=== PATIENT | female | born 1965 | race Caucasian/White ===

== ENCOUNTER 2016-11-06 06:35 | Emergency (ER) | payer BC ==
[~2016-11-06] VITALS: Ht 154.9 cm; Wt 87.9 kg
[2016-11-06] MEDS ORDERED: ONDANSETRON 2MG/ML, 2ML IVPush ONE (07:00)
[2016-11-06] MEDS ORDERED: SODIUM CHLORIDE 0.9% 1,000ML IVBOLUS ONE (07:00)
[2016-11-06] MEDS ORDERED: FAMOTIDINE 20 MG/2 ML IVP ONE (07:00)
[2016-11-06] MEDS ORDERED: MORPHINE SULFATE 4 MG/ML, 1ML IVPush PRN (07:00)
[2016-11-06] MEDS ORDERED: SODIUM CHLORIDE FLUSH 10ML SYR IVF ONE (07:00)
[2016-11-06 07:24] LABS: HEMATOCRIT 40.1 % (34.6-47.8); HEMOGLOBIN 13.5 g/dL (11.7-16.4); WHITE BLOOD COUNT 10.4 x10^3/uL (3.4-10)
[2016-11-06] MEDS ORDERED: MORPHINE SULFATE 4 MG/ML, 1ML ONE (07:34)
[2016-11-06] MEDS ORDERED: ONDANSETRON 2MG/ML, 2ML ONE (07:34)
[2016-11-06] MEDS ORDERED: FAMOTIDINE 20 MG/2 ML ONE (07:34)
[2016-11-06 07:36] LABS: ASPARTATE AMINO TRANSFERASE 11 U/L (15-37); BLOOD UREA NITROGEN 13 mg/dL (7-18)
[2016-11-06 08:02] LABS: HCG UR OBC PASS
[2016-11-06 08:03] LABS: PATH.CAST-FLAG NOT PRESENT; SPERM-FLAG NOT PRESENT; SRC-FLAG NOT PRESENT; XTAL-FLAG NOT PRESENT; YLC-FLAG NOT PRESENT
[2016-11-06] MEDS ORDERED: PROMETHAZINE 25 MG/ML, 1ML IM ONE (08:30)
[2016-11-06] MEDS ORDERED: MAALOX/HYOSCYAMINE/LIDOCAINE 45 ML BTL PO ONE (08:30)
[2016-11-06] MEDS ORDERED: PROMETHAZINE 25 MG/ML, 1ML ONE (09:00)
[2016-11-06] MEDS ORDERED: MAALOX/HYOSCYAMINE/LIDOCAINE 45 ML BTL ONE (09:00)
[2016-11-06 09:46] VITALS: BP 131/78
== END 2016-11-06 09:55 | disposition home or self-care (01) ==
LOC: ED 08:52
DX: K29.00 Acute gastritis without bleeding (principal)
CPT/HCPCS: 36415; 71010; 76700; 80053; 81001; 81025; 83690; 85025; 87086; 93005; 96361; 96372; 96374; 96375; 99285; J2405; J2550; J7030; S0028

== ENCOUNTER → 2017-08-08 | Outpatient (CLI) | payer BC ==
[~2017-08-08] MED LIST: [UNRECOGNIZED DRUG - REMARK]
[2017-08-08 12:12] LABS: BASOPHILS # (AUTO) 0.03 x10^3/uL (0-0.1); BASOPHILS % (AUTO) 0 % (0-1); EOSINOPHILS # (AUTO) 0.08 x10^3/uL (0-0.4); EOSINOPHILS % (AUTO) 1 % (1-7); LYMPHOCYTES # (AUTO) 2.61 x10^3/uL (1-3.4); LYMPHOCYTES % (AUTO) 35 % (22-44); MD NO; MEAN CORPUSCULAR HEMOGLOBIN 32.2 pg (27.0-34.8); MEAN CORPUSCULAR HGB CONC 33.5 g/dL (32.4-35.8); MEAN CORPUSCULAR VOLUME 96.1 fL (80-100); MONOCYTES # (AUTO) 0.46 x10^3/uL (0.2-0.8); MONOCYTES % (AUTO) 6 % (2-9); NEUTROPHILS # (AUTO) 4.31 x10^3/uL (1.8-6.8); NEUTROPHILS % (AUTO) 58 % (42-75); PLATELET COUNT 252 x10^3/uL (130-400); RED BLOOD COUNT 4.21 x10^6/uL (3.82-5.3); RED CELL DISTRIBUTION WIDTH 14.8 % (9.6-15.2)
[2017-08-08 12:19] LABS: INTERNATIONAL NORMALIZED RATIO 0.94 (0.93-1.1); PROTHROMBIN TIME 9.7 Seconds (9.6-11.5)
[2017-08-08 12:21] LABS: MICROSCOPIC NOT IND
[2017-08-08 12:25] LABS: CHLORIDE 111 mmol/L (98-107)
[2017-08-08 12:30] LABS: CULTURE INDICATED? NO
[2017-08-08 12:30] LABS: CALCIUM 8.9 mg/dL (8.5-10.1); CREATININE 0.89 mg/dL (0.55-1.02)
[2017-08-08 13:11] LABS: ANION GAP 9 mmol/L (5-15)
== END | disposition home or self-care (01) ==
LOC: STAR 11:00
PROVIDERS: ATTEND Neurological Surgery
DX: Z01.818 Encounter for other preprocedural examination (principal); M71.38 Other bursal cyst, other site
CPT/HCPCS: 36415; 71046; 80048; 81003; 85025; 85610; 85730; 93005

== ENCOUNTER 2017-08-23 09:30 | Observation (INO) | payer BC ==
[~2017-08-23] VITALS: Ht 154.9 cm; Wt 96.0 kg
[2017-08-23] MEDS ORDERED: LACTATED RINGERS 1,000 ML IV SCH (12:55)
[2017-08-23] MEDS ORDERED: ONDANSETRON ODT 8 MG PO ONE (13:00)
[2017-08-23] MEDS ORDERED: GABAPENTIN 300 MG CAPSULE PO ONE (13:00)
[2017-08-23] MEDS ORDERED: ACETAMINOPHEN 500 MG TABLET PO ONE (13:00)
[2017-08-23] MEDS ORDERED: OXYcodone IR 5MG TABLET PO ONE (13:00)
[2017-08-23 13:27] VITALS: BP 130/90
[2017-08-23] MEDS ORDERED: GABA-827 PO (13:27)
[2017-08-23] MEDS ORDERED: QUET50TA PO (13:27)
[2017-08-23] MEDS ORDERED: FLUV50TA2 PO (13:27)
[2017-08-23] MEDS ORDERED: ALBUTEROL SULFATE 2.5 MG/3 ML NPPB PRN (15:00)
[2017-08-23] MEDS ORDERED: METOPROLOL 1 MG/ML, 5ML IV PRN (15:00)
[2017-08-23] MEDS ORDERED: EPHEDRINE 50 MG/ML, 1ML IVPush PRN (15:00)
[2017-08-23] MEDS ORDERED: OXYcodone 5 MG/5 ML ORAL.SOL UDC PO PRN (15:00)
[2017-08-23] MEDS ORDERED: PROMETHAZINE 25 MG/ML, 1ML IV PRN (15:00)
[2017-08-23] MEDS ORDERED: LABETALOL 5MG/ML, 20ML IV PRN (15:00)
[2017-08-23] MEDS ORDERED: hydrALAzine 20 MG/ML, 1ML IV PRN (15:00)
[2017-08-23] MEDS ORDERED: MORPHINE SULFATE 4 MG/ML, 1ML IVPush PRN (15:00)
[2017-08-23] MEDS ORDERED: HALOPERIDOL 5 MG/ML IV PRN (15:00)
[2017-08-23] MEDS ORDERED: ONDANSETRON ODT 8 MG PO PRN (15:00)
[2017-08-23] MEDS ORDERED: NEOSTIGMINE 1 MG/ML, 10ML ONE (16:20)
[2017-08-23] MEDS ORDERED: ROCURONIUM 10 MG/ML,10ML ONE (16:20)
[2017-08-23] MEDS ORDERED: ONDANSETRON 2MG/ML, 2ML ONE (16:20)
[2017-08-23] MEDS ORDERED: GLYCOPYRROLATE 0.2MG/1ML, 5ML ONE (16:20)
[2017-08-23] MEDS ORDERED: DEXAMETHASONE 4 MG/ML, 1ML ONE (16:20)
[2017-08-23] MEDS ORDERED: PROPOFOL 10 MG/ML, 20ML ONE (16:20)
[2017-08-23] MEDS ORDERED: CEFAZOLIN 1,000 MG ONE (16:20)
[2017-08-23] MEDS ORDERED: BUPIVACAINE/PF 0.25% INFIL ONE (16:59)
[2017-08-23] MEDS ORDERED: BACITRACIN 50,000 UNIT IRRIG ONE (17:02)
[2017-08-23] MEDS ORDERED: THROMBIN 5,000 UNIT VIAL TP ONE (17:02)
[2017-08-23] MEDS ORDERED: SUGAMMADEX 200 MG/2 ML IVPush ONE (17:18)
[2017-08-23] MEDS ORDERED: PHARMACY MAY ADJ FOR RENAL FX MC PRN (17:30)
[2017-08-23] MEDS ORDERED: BISACODYL 10 MG SUPP PR PRN (17:30)
[2017-08-23] MEDS: FENTANYL PF 100 MCG/2ML IV PRN ×2 (17:30→18:07)
[2017-08-23] MEDS ORDERED: DIPHENHYDRAMINE 50 MG/ML, 1ML IVPush PRN (17:30)
[2017-08-23] MEDS ORDERED: MAGNESIUM HYDROXIDE 8%, 30ML UDC PO PRN (17:30)
[2017-08-23] MEDS ORDERED: ONDANSETRON 2MG/ML, 2ML IVPush PRN (17:30)
[2017-08-23] MEDS ORDERED: FENTANYL PF 100 MCG/2ML ONE (17:30)
[2017-08-23] MEDS ORDERED: PROMETHAZINE 25 MG/ML, 1ML IM PRN (17:30)
[2017-08-23] MEDS ORDERED: HYDROmorphone 1 MG/ML, 1ML IVPush PRN (17:30)
[2017-08-23] MEDS ORDERED: DIAZEPAM 5 MG TABLET PO PRN (17:30)
[2017-08-23] MEDS: HYDROmorphone 1 MG/ML, 1ML IV PRN ×2 (17:31→17:37)
[2017-08-23] MEDS ORDERED: HYDROmorphone 2 MG/ML, 1ML ONE (17:31)
[2017-08-23] MEDS ORDERED: OXYcodone 5 MG/5 ML ORAL.SOL UDC ONE (17:31)
[2017-08-23] MEDS ORDERED: DIAZEPAM 5 MG TABLET ONE (18:26)
[2017-08-23 19:00] VITALS: BP 143/101
[2017-08-23] MEDS: NS + 20MEQ KCL 1,000 ML IV SCH (19:26)
[2017-08-23] MEDS: SODIUM CHLORIDE FLUSH 10ML SYR IVF SCH (19:47)
[2017-08-23] MEDS: GABAPENTIN 400 MG CAPSULE PO SCH (20:43)
[2017-08-23] MEDS: METHOCARBAMOL 750 MG TABLET PO PRN (20:44)
[2017-08-23] MEDS ORDERED: FLUVOXAMINE 50MG TABLET PO SCH (21:00)
[2017-08-23] MEDS: OXYcodone/APAP 5/325MG TABLET PO PRN (22:26)
[2017-08-24] MEDS: CEFAZOLIN PMX 1GM/50ML 50 ML IVPB SCH ×2 (00:19→08:07)
[2017-08-24 04:31] VITALS: BP 95/55
[2017-08-24] MEDS: NS + 20MEQ KCL 1,000 ML IV SCH ×2 (05:15→15:15)
[2017-08-24] MEDS: METHOCARBAMOL 750 MG TABLET PO PRN ×2 (05:47→16:15)
[2017-08-24] MEDS: OXYcodone/APAP 5/325MG TABLET PO PRN ×3 (06:46→14:41)
[2017-08-24 06:50] VITALS: BP 108/65
[2017-08-24] MEDS: GABAPENTIN 400 MG CAPSULE PO SCH (08:08)
[2017-08-24] MEDS: SODIUM CHLORIDE FLUSH 10ML SYR IVF SCH (08:08)
[2017-08-24] MEDS ORDERED: SENNA/DOCUSATE TABLET PO SCH (09:00)
[2017-08-24] MEDS ORDERED: OXYC1TAB7 PO (09:19)
[2017-08-24] MEDS ORDERED: METH750T2 PO (09:19)
[2017-08-24 12:35] VITALS: BP 109/66
[2017-08-24] MEDS ORDERED: PNEUMOCOCCAL 23 VACCINE IM-VACC ONE (15:30)
== END 2017-08-24 17:25 | disposition home or self-care (01) ==
LOC: ORIP 12:19 → INTOOBSV 12:19 → 4NOR 18:58
PROVIDERS: ADMIT Neurological Surgery; ATTEND Neurological Surgery
DX: M54.16 Radiculopathy, lumbar region (principal); M71.38 Other bursal cyst, other site; M51.36 Other intervertebral disc degeneration, lumbar region; F31.9 Bipolar disorder, unspecified; Z87.891 Personal history of nicotine dependence; Z23 Encounter for immunization
CPT/HCPCS: 63030; 72100; 88304; 90471; 90732; 96365; 96375; 97162; 97166; G0378; J0171; J0690; J1100; J1170; J2250; J2405; J2704; J2710; J3010; J3370; J3480; J3490; J7120; Q0162

== ENCOUNTER 2018-08-12 02:46 | Inpatient (IN) | payer BC ==
[~2018-08-12] VITALS: Ht 154.9 cm; Wt 85.0 kg
[~2018-08-12 02:46] MED LIST changes: +FLUV50TA2 PO; +GABA-827 PO; +METH750T2 PO; +OXYC1TAB7 PO; +QUET50TA PO
[2018-08-12] MEDS ORDERED: MUCINEX (02:57)
[2018-08-12] MEDS ORDERED: IBUPROFEN (02:57)
[2018-08-12] MEDS ORDERED: TRAZ-137 PO (02:57)
[2018-08-12] MEDS ORDERED: BENADRYL (02:57)
--- NOTE | 2018-08-12 03:06 | NUR ---
PT PRESENTED WITH C/O CHEST PAIN, NAUSEA, PAIN IS DESCRIBED PRESSURE AND HAS BEEN HAVING N/V, PAIN HAS BEEN CONSTANT. THAT ONSET MONDAY NIGHT THAT STOPPED. PAIN IS WORSE WITH DEEP BREATH, TONIGH/THIS AM SHE AWOKE IN COLD SWEAT. MONITORS APPLIED, SIDERAILS UP X2, CALL LIGHT WITHIN REACH
[2018-08-12] MEDS ORDERED: MAALOX/HYOSCYAMINE/LIDOCAINE 45 ML BTL ONE (03:23)
[2018-08-12] MEDS ORDERED: FAMOTIDINE 20 MG/2 ML ONE (03:23)
[2018-08-12] MEDS ORDERED: MORPHINE SULFATE 4 MG/ML, 1ML ONE ×2 (03:24→06:26)
[2018-08-12] MEDS ORDERED: ONDANSETRON 2MG/ML, 2ML ONE (03:24)
[2018-08-12] MEDS ORDERED: SODIUM CHLORIDE FLUSH 10ML SYR IVF ONE (03:30)
[2018-08-12] MEDS ORDERED: SODIUM CHLORIDE 0.9% 1,000ML IVBOLUS ONE (03:30)
[2018-08-12] MEDS ORDERED: ONDANSETRON 2MG/ML, 2ML IVPush ONE (03:30)
[2018-08-12] MEDS ORDERED: MAALOX/HYOSCYAMINE/LIDOCAINE 45 ML BTL PO ONE ×2 (03:30→12:30)
[2018-08-12] MEDS ORDERED: FAMOTIDINE 20 MG/2 ML IVP ONE (03:30)
[2018-08-12] MEDS: MORPHINE SULFATE 4 MG/ML, 1ML IVPush PRN ×2 (03:32→06:27)
--- NOTE | 2018-08-12 03:35 | NUR ---
IV SITE STARTED, PT MEDICATED PER MAR
[2018-08-12 03:41] LABS: BASOPHILS # (AUTO) 0.07 x10^3/uL (0-0.1); BASOPHILS % (AUTO) 1 % (0-1); EOSINOPHILS # (AUTO) 0.09 x10^3/uL (0-0.4); EOSINOPHILS % (AUTO) 1 % (1-7); LYMPHOCYTES % (AUTO) 41 % (22-44); MD NO; MEAN CORPUSCULAR HEMOGLOBIN 32.6 pg (27.0-34.8); MEAN CORPUSCULAR HGB CONC 33.2 g/dL (32.4-35.8); MEAN PLATELET VOLUME 7.6 fL (7.4-10.4); MONOCYTES # (AUTO) 0.68 x10^3/uL (0.2-0.8); MONOCYTES % (AUTO) 7 % (2-9); NEUTROPHILS # (AUTO) 4.74 x10^3/uL (1.8-6.8); NEUTROPHILS % (AUTO) 51 % (42-75); PLATELET COUNT 246 x10^3/uL (130-400); RED BLOOD COUNT 4.64 x10^6/uL (3.82-5.3); RED CELL DISTRIBUTION WIDTH 13.9 % (9.6-15.2)
[2018-08-12 03:49] LABS: ANION GAP 7 mmol/L (5-15); CALCIUM 9.5 mg/dL (8.5-10.1); CHLORIDE 108 mmol/L (98-107)
[2018-08-12 03:50] LABS: ALANINE AMINOTRANSFERASE 54 U/L (12-78); ALBUMIN 3.9 g/dL (3.4-5.0)
[2018-08-12 03:54] LABS: ALKALINE PHOSPHATASE 98 U/L (45-117); BILIRUBIN,TOTAL 0.3 mg/dL (0.2-1.0); TROPONIN I < 0.015 ng/mL (0.000-0.045)
--- NOTE | 2018-08-12 04:47 | NUR ---
PT RESTING ON GURREYNOLD, STATED " I FEEL ALOT BETTER", DENIES NEEDS AT THIS TIME, MONITORS IN PLACE, CALL LIGHT WITHIN REACH. CHART UP FOR RECHECK
--- NOTE | 2018-08-12 05:10 | NUR ---
ERP AT BEDSIDE FOR RECHECK
--- NOTE | 2018-08-12 05:32 | NUR ---
PT RESTING ON GURNEY, DENIES NEEDS, MONITORS IN PLACE, CALL LIGHT WITHIN REACH. AWAITING CTA
--- NOTE | 2018-08-12 05:40 | NUR ---
PT TO CT
[2018-08-12] MEDS ORDERED: OMNIPAQUE 350 MG/ML, 100ML BOTTLE ONE (06:10)
--- NOTE | 2018-08-12 06:28 | NUR ---
[place] ST[place] CP HAS RETURNED AND REQUESTING MEDICATION FOR PAIN, PT MEDICATED PER APR. MONITORS IN PLACE, CALL LIGHT WITHIN REACH. AWAITING CTA RESULT
--- NOTE | 2018-08-12 06:56 | NUR ---
report given to karri ozuna
--- NOTE | 2018-08-12 07:27 | NUR ---
PT RESTING ON GURREYNOLD, STATES PAIN IMPROVED POST MS04. NO OTHER NEEDS AT THIS TIME, AWAITING ADMISSION
[2018-08-12] MEDS ORDERED: ONDANSETRON 2MG/ML, 2ML IVPush PRN ×2 (07:30→09:00)
[2018-08-12] MEDS ORDERED: MORPHINE SULFATE 4 MG/ML, 1ML IVPush PRN (07:30)
--- NOTE | 2018-08-12 07:58 | NUR ---
REPORT TO OLIVER SCHMITT.
[2018-08-12] MEDS ORDERED: OXYcodone IR 5MG TABLET PO PRN (09:00)
[2018-08-12] MEDS ORDERED: morphine SULFATE 10 MG/ML, 1ML IVPush PRN (09:00)
[2018-08-12] MEDS ORDERED: PROMETHAZINE 25 MG/ML, 1ML IM PRN (09:00)
[2018-08-12] MEDS ORDERED: hydrALAzine 20 MG/ML, 1ML IVPush PRN (09:00)
[2018-08-12] MEDS ORDERED: ACETAMINOPHEN 325 MG TABLET PO PRN (09:00)
[2018-08-12] MEDS ORDERED: NITROGLYCERIN 0.4 MG BOTTLE (25 TABS) SL PRN (09:00)
[2018-08-12] MEDS ORDERED: ONDANSETRON ODT 4 MG PO PRN (09:00)
[2018-08-12 09:20] LABS: FREE T4 (FREE THYROXINE) 0.95 ng/dL (0.76-1.46); THYROID STIMULATING HORMONE 3.22 mIU/L (0.358-3.740)
[2018-08-12 09:53] VITALS: BP 126/87
[2018-08-12 10:08] LABS: HEMOGLOBIN A1C 5.9 % (4.2-6.3)
[2018-08-12] MEDS: SODIUM CHLORIDE 0.9% 1,000 ML IV SCH ×2 (10:33→20:46)
[2018-08-12] MEDS: PANTOPRAZOLE 40 MG IV IVPush SCH ×2 (10:33→20:45)
[2018-08-12 11:50] LABS: TROPONIN I < 0.015 ng/mL (0.000-0.045)
[2018-08-12 13:03] VITALS: BP 110/75
[2018-08-12 14:19] LABS: TROPONIN I < 0.015 ng/mL (0.000-0.045)
[2018-08-12 14:24] VITALS: BP 127/84
[2018-08-12 17:49] VITALS: BP 126/87
[2018-08-12 18:29] VITALS: BP 128/84
[2018-08-12] MEDS ORDERED: TRAZODONE 100MG TABLET PO SCH (21:00)
[2018-08-12] MEDS ORDERED: QUETIAPINE 25MG TABLET PO SCH (21:00)
[2018-08-12] MEDS ORDERED: FLUVOXAMINE 50MG TABLET PO SCH (21:00)
[2018-08-13 01:13] VITALS: BP 112/75
[2018-08-13] MEDS: SODIUM CHLORIDE 0.9% 1,000 ML IV SCH (05:04)
[2018-08-13 05:19] LABS: BASOPHILS # (AUTO) 0.01 x10^3/uL (0-0.1); BASOPHILS % (AUTO) 0 % (0-1); EOSINOPHILS # (AUTO) 0.05 x10^3/uL (0-0.4); EOSINOPHILS % (AUTO) 1 % (1-7); LYMPHOCYTES # (AUTO) 2.38 x10^3/uL (1-3.4); LYMPHOCYTES % (AUTO) 40 % (22-44); MD NO; MEAN CORPUSCULAR HEMOGLOBIN 32.8 pg (27.0-34.8); MEAN CORPUSCULAR HGB CONC 33.3 g/dL (32.4-35.8); MEAN CORPUSCULAR VOLUME 98.4 fL (80-100); MEAN PLATELET VOLUME 7.8 fL (7.4-10.4); MONOCYTES # (AUTO) 0.52 x10^3/uL (0.2-0.8); MONOCYTES % (AUTO) 9 % (2-9); NEUTROPHILS # (AUTO) 2.93 x10^3/uL (1.8-6.8); NEUTROPHILS % (AUTO) 50 % (42-75); PLATELET COUNT 192 x10^3/uL (130-400); RED BLOOD COUNT 3.76 x10^6/uL (3.82-5.3); RED CELL DISTRIBUTION WIDTH 14.4 % (9.6-15.2)
[2018-08-13 05:26] LABS: ALBUMIN 2.9 g/dL (3.4-5.0); ANION GAP 5 mmol/L (5-15); CALCIUM 8.2 mg/dL (8.5-10.1); CHLORIDE 116 mmol/L (98-107)
[2018-08-13 05:32] LABS: ALANINE AMINOTRANSFERASE 37 U/L (12-78); ALKALINE PHOSPHATASE 73 U/L (45-117); BILIRUBIN,TOTAL 0.2 mg/dL (0.2-1.0); CHOL/HDL RATIO 3.2; CHOLESTEROL, TOTAL 165 mg/dL (140-239); CREATININE 0.79 mg/dL (0.55-1.02); HDL CHOL % 31 % (28-40); HDL CHOLESTEROL (DIRECT) 51 mg/dL (40-60); LDL CHOLESTEROL,CALCULATED 83 mg/dL (54-169); LDL/HDL RATIO 1.6 (0.5-3.0); TOTAL PROTEIN 5.9 g/dL (6.4-8.2); TRIGLYCERIDES 155 mg/dL (50-200); VLDL CHOLESTEROL 31 mg/dL (0-25)
[2018-08-13 06:52] VITALS: BP 97/66
[2018-08-13] MEDS: PANTOPRAZOLE 40 MG IV IVPush SCH (08:20)
[2018-08-13] MEDS ORDERED: OMEP-110 PO (11:40)
== END 2018-08-13 14:30 | disposition home or self-care (01) | DRG 392 ==
LOC: ED 03:19 → EDIP 07:13 → 5SO 08:22 → DCLOUNGE 08-13 14:25
PROVIDERS: ADMIT Hospitalist; ATTEND Hospitalist
DX: K29.70 Gastritis, unspecified, without bleeding (principal); I20.0 Unstable angina; F31.9 Bipolar disorder, unspecified; F41.9 Anxiety disorder, unspecified; R07.89 Other chest pain; K21.0 Gastro-esophageal reflux disease with esophagitis; Z87.891 Personal history of nicotine dependence; Z88.8 Allergy status to other drugs, medicaments and biological substances
CPT/HCPCS: 36415; J3490; 71045; 71275; 80053; 80061; 83036; 83690; 83735; 84439; 84443; 84484; 85025; 93005; 93017; 93306; G0378; J2405; Q9967; C9113; J2270; J7030

== ENCOUNTER 2019-09-04 06:36 | Inpatient (IN) | payer BC ==
[~2019-09-04] VITALS: Ht 154.9 cm; Wt 86.0 kg
[~2019-09-04 06:36] MED LIST changes: +BENADRYL; +IBUPROFEN; +MUCINEX; +OMEP-110 PO; +TRAZ-175 PO
--- NOTE | 2019-09-04 06:52 | NUR ---
Pt presents with c/o N/V/D. Pt states diarrhea has been "going on for a while" and she can "control it during the day but has to wear diapers at night." Pt states last night vomiting and abdominal pain became worse leading her to call 911. When EMS arrived at her home, she states the symptoms calmed down and they adminsitered antiemetics and she decided not to go to the hospital. She states symptoms became worse again so she decided to come in
[2019-09-04] MEDS ORDERED: SODIUM CHLORIDE FLUSH 10ML SYR IVF ONE (07:00)
[2019-09-04] MEDS ORDERED: SODIUM CHLORIDE 0.9% 1,000ML IVBOLUS ONE (07:00)
[2019-09-04 07:20] LABS: BASOPHILS # (AUTO) 0.01 x10^3/uL (0-0.1); BASOPHILS % (AUTO) 0 % (0-1); EOSINOPHILS # (AUTO) 0.01 x10^3/uL (0-0.4); EOSINOPHILS % (AUTO) 0 % (1-7); LYMPHOCYTES # (AUTO) 1.64 x10^3/uL (1-3.4); LYMPHOCYTES % (AUTO) 14 % (22-44); MD NO; MEAN CORPUSCULAR HEMOGLOBIN 33.3 pg (27.0-34.8); MEAN CORPUSCULAR HGB CONC 32.4 g/dL (32.4-35.8); MEAN CORPUSCULAR VOLUME 102.7 fL (80-100); MONOCYTES # (AUTO) 0.22 x10^3/uL (0.2-0.8); MONOCYTES % (AUTO) 2 % (2-9); NEUTROPHILS # (AUTO) 9.71 x10^3/uL (1.8-6.8); NEUTROPHILS % (AUTO) 84 % (42-75); PLATELET COUNT 265 x10^3/uL (130-400); RED BLOOD COUNT 4.34 x10^6/uL (3.82-5.3); RED CELL DISTRIBUTION WIDTH 13.2 % (9.6-15.2)
--- NOTE | 2019-09-04 07:20 | NUR ---
RECEIVED REPORT FROM JADON
[2019-09-04 07:30] LABS: ALANINE AMINOTRANSFERASE 55 U/L (12-78); ANION GAP 10 mmol/L (5-15); CALCIUM 9.4 mg/dL (8.5-10.1); CHLORIDE 112 mmol/L (98-107); CREATININE 0.87 mg/dL (0.55-1.02)
--- NOTE | 2019-09-04 07:34 | NUR ---
PT TO CT Addendum: 09/04/19 at 0735 by NAHEED PT TO RAD
[2019-09-04 07:35] LABS: ALKALINE PHOSPHATASE 118 U/L (45-117); BILIRUBIN,TOTAL 0.3 mg/dL (0.2-1.0); TOTAL PROTEIN 8.2 g/dL (6.4-8.2); TROPONIN I < 0.015 ng/mL (0.000-0.045)
--- NOTE | 2019-09-04 08:03 | NUR ---
PT RETURNED FROM RAD & PROVIDED UA SAMPLE (SENT TO LAB), PT BACK ON [facility] C/O INCREASED NAUSEA & "BURNING" ABD PAIN ("IT HAPPENS EVERYTIME I GO TO THE BATHROOM")- AWAITING TO NOTIFY ERP WHEN HE RETURNS TO DOC STATION, PT RESPONDS APPROP TO STAFF, COMFORT MEASURES PROVIDED, CALL LIGHT WITHIN REACH.
[2019-09-04 08:36] LABS: MICROSCOPIC INDICATED
--- NOTE | 2019-09-04 09:02 | NUR ---
PT RESTING ON GURNEY WITH EYES CLOSED, RESPONDS APPROP TO STAFF & CONTINUES TO C/O NAUSEA & ABD PAIN- THIS RN CONTINUES TO AWAIT TO NOTIFY ERP WHEN HE RETURNS TO DOC STATION, PT RESPONDS APPROP TO STAFF, COMFORT MEASURES PROVIDED, CALL LIGHT WITHIN REACH.
[2019-09-04] MEDS ORDERED: MAALOX/HYOSCYAMINE/LIDOCAINE 45 ML BTL ONE (09:18)
[2019-09-04] MEDS ORDERED: ONDANSETRON 2MG/ML, 2ML ONE (09:18)
[2019-09-04] MEDS ORDERED: MAALOX/HYOSCYAMINE/LIDOCAINE 45 ML BTL PO ONE (09:30)
[2019-09-04] MEDS ORDERED: ONDANSETRON 2MG/ML, 2ML IVPush ONE (09:30)
[2019-09-04] MEDS ORDERED: ASPIRIN 81 MG TABLET CHEW ONE (09:41)
[2019-09-04] MEDS ORDERED: CEFTRIAXONE PMX 1GM/50ML 50 ML ONE (09:48)
--- NOTE | 2019-09-04 09:51 | NUR ---
PT REFUSED ASA ("IT TEARS MY STOMACH UP, I WON'T TAKE IT.")- ERP AWARE.
[2019-09-04] MEDS ORDERED: CEFTRIAXONE PMX 1GM/50ML 50 ML IV ONE (10:00)
[2019-09-04] MEDS ORDERED: ASPIRIN 81 MG TABLET CHEW PO ONE (10:00)
--- NOTE | 2019-09-04 10:02 | NUR ---
PT CONTINUES RESTING ON GURNEY WITH EYES CLOSED, RESPONDS APPROP TO STAFF & REPORTS NAUSEA IS "A LITTLE BETER, STILL COMES & GOES BUT NOT BAD", PT MEDICATED FOR ABD PAIN 20MINS AFTER ZOFRAN GIVEN PER DR ENGLE'S INSTRUCTIONS, PT RESPONDS APPROP TO STAFF, COMFORT MEASURES PROVIDED, CALL LIGHT WITHIN REACH.
[2019-09-04] MEDS ORDERED: MORPHINE SULFATE 4 MG/ML, 1ML ONE (10:08)
--- NOTE | 2019-09-04 10:16 | NUR ---
PT PLACED ON BEDPAN, DOES NOT WANT MORPHINE UNTIL AFTER VOID/BM.
[2019-09-04] MEDS ORDERED: morphine SULFATE 10 MG/ML, 1ML IVPush ONE (10:30)
[2019-09-04] MEDS ORDERED: VENL37.52 PO (10:45)
[2019-09-04] MEDS ORDERED: TOPI200T6 PO (10:45)
--- NOTE | 2019-09-04 11:00 | NUR ---
PT SLEEPING ON GURNEY MORE COMFORTABLY AFTER PAIN MED, RESPONDS APPROP TO STAFF, NAD, COMFORT MEASURES PROVIDED, CALL LIGHT WITHIN REACH.
--- NOTE | 2019-09-04 12:00 | NUR ---
PT CONTINUES SLEEPING ON GURNEY COMFORTABLY, RESPONDS APPROP TO STAFF, NAD, NO NEEDS AT THIS TIME, CALL LIGHT WITHIN REACH.
--- NOTE | 2019-09-04 12:25 | NUR ---
Pt to be admitted to card-tele, room 501. Report called to [place].
[2019-09-04 13:23] VITALS: BP 124/86
[2019-09-04 14:00] VITALS: BP 124/86
[2019-09-04] MEDS ORDERED: ACETAMINOPHEN 325 MG TABLET PO PRN (14:30)
[2019-09-04] MEDS ORDERED: CEFTRIAXONE PMX 1GM/50ML 50 ML IV SCH (14:30)
[2019-09-04] MEDS ORDERED: ZOLPIDEM 5MG TABLET PO PRN (14:30)
[2019-09-04] MEDS ORDERED: METOCLOPRAMIDE 5 MG/ML, 2ML IVPush PRN (14:30)
[2019-09-04] MEDS ORDERED: ONDANSETRON ODT 4 MG PO PRN (14:30)
[2019-09-04] MEDS ORDERED: ONDANSETRON 2MG/ML, 2ML IVPush PRN (14:30)
[2019-09-04] MEDS: MORPHINE SULFATE 4 MG/ML, 1ML IVPush PRN ×3 (15:17→21:27)
[2019-09-04] MEDS: ENOXAPARIN 40 MG/0.4 ML SQ SCH ×2 (15:21→21:28)
[2019-09-04 15:24] LABS: CLOSTRIDIUM DIFFICILE ANTIGEN POSITIVE; CLOSTRIDIUM DIFFICILE TOXIN NEGATIVE (Negative)
[2019-09-04 15:27] LABS: TROPONIN I < 0.015 ng/mL (0.000-0.045)
[2019-09-04] MEDS: POTASSIUM CHLORIDE 40 MEQ in D5%-LACTATED RINGERS 1,000 ML IV SCH (15:57)
[2019-09-04] MEDS ORDERED: LORazepam 2 MG/ML, 1ML IV PRN ×4 (16:30)
[2019-09-04 16:32] LABS: CRYPTOSPORIDIUM ANTIGEN Negative (Negative)
[2019-09-04] MEDS ORDERED: FENTANYL PF 100 MCG/2ML IVPush PRN (18:00)
[2019-09-04 18:15] LABS: TROPONIN I < 0.015 ng/mL (0.000-0.045)
[2019-09-04 18:53] LABS: HCT (SEDRATE) 44.6 % (34.6-47.8)
[2019-09-04 19:44] VITALS: BP 146/92
[2019-09-04] MEDS: QUETIAPINE 200 MG TABLET PO SCH (21:28)
[2019-09-04] MEDS ORDERED: OMNIPAQUE 350 MG/ML, 100ML BOTTLE ONE (23:30)
[2019-09-05] MEDS ORDERED: BUPIVACAINE/PF 0.5% ONE (00:28)
[2019-09-05] MEDS ORDERED: METRONIDAZOLE PMX 500MG/100ML 100 ML IV SCH ×2 (00:30→08:30)
[2019-09-05] MEDS ORDERED: FENTANYL PF 250 MCG/5ML ONE ×2 (00:38→12:59)
[2019-09-05] MEDS: POTASSIUM CHLORIDE 40 MEQ in D5%-LACTATED RINGERS 1,000 ML IV SCH ×2 (02:44→18:05)
[2019-09-05] MEDS: VANCOMYCIN 50 MG/ML ORAL SUSP PO SCH ×4 (02:44→21:57)
[2019-09-05 02:50] VITALS: BP 100/67
[2019-09-05 06:05] LABS: BASOPHILS # (AUTO) 0.02 x10^3/uL (0-0.1); BASOPHILS % (AUTO) 0 % (0-1); EOSINOPHILS # (AUTO) 0.05 x10^3/uL (0-0.4); EOSINOPHILS % (AUTO) 1 % (1-7); LYMPHOCYTES # (AUTO) 3.12 x10^3/uL (1-3.4); LYMPHOCYTES % (AUTO) 35 % (22-44); MD NO; MEAN CORPUSCULAR HEMOGLOBIN 33.6 pg (27.0-34.8); MEAN CORPUSCULAR HGB CONC 32.5 g/dL (32.4-35.8); MEAN CORPUSCULAR VOLUME 103.3 fL (80-100); MEAN PLATELET VOLUME 8.7 fL (7.4-10.4); MONOCYTES # (AUTO) 0.53 x10^3/uL (0.2-0.8); MONOCYTES % (AUTO) 6 % (2-9); NEUTROPHILS # (AUTO) 5.15 x10^3/uL (1.8-6.8); NEUTROPHILS % (AUTO) 58 % (42-75); PLATELET COUNT 220 x10^3/uL (130-400); RED BLOOD COUNT 3.47 x10^6/uL (3.82-5.3); RED CELL DISTRIBUTION WIDTH 13.7 % (9.6-15.2)
[2019-09-05 06:12] LABS: CHLORIDE 114 mmol/L (98-107)
[2019-09-05 06:27] LABS: ALANINE AMINOTRANSFERASE 41 U/L (12-78); ALBUMIN 3.2 g/dL (3.4-5.0); ALKALINE PHOSPHATASE 87 U/L (45-117); ANION GAP 7 mmol/L (5-15); BILIRUBIN,TOTAL 0.3 mg/dL (0.2-1.0); CALCIUM 8.1 mg/dL (8.5-10.1); CHOL/HDL RATIO 3.7; CHOLESTEROL, TOTAL 179 mg/dL (140-239); CREATININE 0.94 mg/dL (0.55-1.02); HDL CHOL % 27 % (28-40); HDL CHOLESTEROL (DIRECT) 48 mg/dL (40-60); LDL CHOLESTEROL,CALCULATED 86 mg/dL (54-169); LDL/HDL RATIO 1.8 (0.5-3.0); TOTAL PROTEIN 6.5 g/dL (6.4-8.2); TRIGLYCERIDES 223 mg/dL (50-200); VLDL CHOLESTEROL 45 mg/dL (0-25)
[2019-09-05 07:15] VITALS: BP 120/79
[2019-09-05] MEDS ORDERED: FENTANYL PF 100 MCG/2ML IVPush PRN (08:00)
[2019-09-05] MEDS ORDERED: CEFTRIAXONE PMX 1GM/50ML 50 ML IV SCH (08:00)
[2019-09-05] MEDS: PANTOPRAZOLE 40 MG IV IVPush SCH (10:07)
[2019-09-05] MEDS: VENLAFAXINE 75 MG CAP ER PO SCH (10:08)
[2019-09-05] MEDS: TOPIRAMATE 100 MG TABLET PO SCH (10:08)
[2019-09-05] MEDS: MORPHINE SULFATE 4 MG/ML, 1ML IVPush PRN (10:08)
[2019-09-05] MEDS ORDERED: CHLORHEXIDINE 15 ML UDC ONE (12:21)
[2019-09-05] MEDS ORDERED: MIDAZOLAM 1 MG/ML, 2ML ONE (12:59)
[2019-09-05] MEDS ORDERED: CHLORHEXIDINE 15 ML UDC MM ONE (13:00)
[2019-09-05] MEDS ORDERED: SUGAMMADEX 200 MG/2 ML IVPush ONE (13:06)
[2019-09-05] MEDS ORDERED: KETOROLAC 30 MG/1 ML ONE (13:06)
[2019-09-05] MEDS ORDERED: DEXAMETHASONE 4 MG/ML, 1ML ONE (13:06)
[2019-09-05] MEDS ORDERED: ONDANSETRON 2MG/ML, 2ML ONE ×3 (13:06→14:40)
[2019-09-05] MEDS ORDERED: SUCCINYLCHOLINE 20 MG/ML, 10ML ONE (13:06)
[2019-09-05] MEDS ORDERED: PROPOFOL 10 MG/ML, 20ML ONE (13:06)
[2019-09-05] MEDS ORDERED: ROCURONIUM 10 MG/ML,10ML ONE (13:06)
[2019-09-05] MEDS ORDERED: BUPIVACAINE/PF-EPI 0.5% 1:200K IM ONE (13:22)
[2019-09-05] MEDS ORDERED: OXYcodone 5 MG/5 ML ORAL.SOL UDC PO PRN ×2 (13:30→17:00)
[2019-09-05] MEDS ORDERED: MEPERIDINE/PF 25MG/0.5ML IVPush PRN (13:30)
[2019-09-05] MEDS ORDERED: DIPHENHYDRAMINE 50 MG/ML, 1ML IVPush PRN (13:30)
[2019-09-05] MEDS ORDERED: HYDROmorphone 1 MG/ML, 1ML INJ IVPush PRN (13:30)
[2019-09-05] MEDS ORDERED: PROMETHAZINE 25 MG/ML, 1ML IVPush PRN (13:30)
[2019-09-05] MEDS ORDERED: PROMETHAZINE 12.5 MG SUPP PR PRN (13:30)
[2019-09-05] MEDS ORDERED: MIDAZOLAM 1 MG/ML, 2ML IV PRN (13:30)
[2019-09-05] MEDS ORDERED: EPHEDRINE 50 MG/ML, 1ML IVPush PRN (13:30)
[2019-09-05] MEDS ORDERED: ALBUTEROL SULFATE 2.5 MG/3 ML NPPB PRN (13:30)
[2019-09-05] MEDS ORDERED: LABETALOL 5MG/ML, 20ML IV PRN (13:30)
[2019-09-05] MEDS ORDERED: hydrALAzine 20 MG/ML, 1ML IV PRN (13:30)
[2019-09-05] MEDS ORDERED: ONDANSETRON 2MG/ML, 2ML IVPush PRN (13:30)
[2019-09-05] MEDS ORDERED: DIAZEPAM 5 MG/ML, 2ML IVPush PRN (13:30)
[2019-09-05] MEDS ORDERED: FENTANYL PF 100 MCG/2ML ONE ×3 (13:43→14:29)
[2019-09-05] MEDS ORDERED: MEPERIDINE/PF 50 MG/ML ONE (14:12)
[2019-09-05] MEDS ORDERED: OXYcodone 5 MG/5 ML ORAL.SOL UDC ONE (14:20)
[2019-09-05] MEDS: FENTANYL PF 100 MCG/2ML IV PRN ×2 (14:32→14:50)
[2019-09-05] MEDS ORDERED: HYDROmorphone 1 MG/ML, 1ML INJ ONE (14:36)
[2019-09-05] MEDS ORDERED: LORazepam 2 MG/ML, 1ML ONE (14:36)
[2019-09-05] MEDS ORDERED: PROMETHAZINE 25 MG/ML, 1ML ONE (14:41)
[2019-09-05] MEDS: LORazepam 1MG TABLET PO PRN ×2 (14:56→22:53)
[2019-09-05 16:00] VITALS: BP 127/83
[2019-09-05] MEDS ORDERED: ENOXAPARIN 40 MG/0.4 ML SQ SCH (18:30)
[2019-09-05] MEDS ORDERED: ONDANSETRON 2MG/ML, 2ML IV PRN (18:30)
[2019-09-05 18:38] VITALS: BP 139/87
[2019-09-05 20:15] VITALS: BP 138/89
[2019-09-05] MEDS: ACETAMINOPHEN 500 MG TABLET PO SCH (21:57)
[2019-09-05] MEDS: OXYcodone 5 MG/5 ML ORAL.SOL UDC PO PRN ×2 (22:13→22:53)
[2019-09-05] MEDS: QUETIAPINE 200 MG TABLET PO SCH (22:13)
[2019-09-06] MEDS: POTASSIUM CHLORIDE 40 MEQ in D5%-LACTATED RINGERS 1,000 ML IV SCH ×3 (00:12→21:55)
[2019-09-06 01:45] VITALS: BP 109/75
[2019-09-06 04:09] VITALS: BP 104/71
[2019-09-06] MEDS: ACETAMINOPHEN 500 MG TABLET PO SCH ×4 (04:18→21:55)
[2019-09-06] MEDS: VANCOMYCIN 50 MG/ML ORAL SUSP PO SCH ×4 (04:18→21:55)
[2019-09-06] MEDS: OXYcodone 5 MG/5 ML ORAL.SOL UDC PO PRN ×3 (04:41→21:44)
[2019-09-06 06:29] LABS: ALBUMIN 3.2 g/dL (3.4-5.0); ANION GAP 6 mmol/L (5-15); CALCIUM 8.5 mg/dL (8.5-10.1); CHLORIDE 119 mmol/L (98-107); CREATININE 0.79 mg/dL (0.55-1.02)
[2019-09-06 06:34] LABS: BASOPHILS # (AUTO) 0.02 x10^3/uL (0-0.1); BASOPHILS % (AUTO) 0 % (0-1); EOSINOPHILS # (AUTO) 0.07 x10^3/uL (0-0.4); EOSINOPHILS % (AUTO) 1 % (1-7); LYMPHOCYTES # (AUTO) 2.46 x10^3/uL (1-3.4); LYMPHOCYTES % (AUTO) 25 % (22-44); MD NO; MEAN CORPUSCULAR HEMOGLOBIN 34.2 pg (27.0-34.8); MEAN CORPUSCULAR HGB CONC 33.2 g/dL (32.4-35.8); MEAN CORPUSCULAR VOLUME 102.9 fL (80-100); MEAN PLATELET VOLUME 8.7 fL (7.4-10.4); MONOCYTES # (AUTO) 0.52 x10^3/uL (0.2-0.8); MONOCYTES % (AUTO) 5 % (2-9); NEUTROPHILS # (AUTO) 6.83 x10^3/uL (1.8-6.8); NEUTROPHILS % (AUTO) 69 % (42-75); PLATELET COUNT 207 x10^3/uL (130-400); RED BLOOD COUNT 3.28 x10^6/uL (3.82-5.3); RED CELL DISTRIBUTION WIDTH 13.1 % (9.6-15.2)
[2019-09-06 07:33] VITALS: BP 125/79
[2019-09-06] MEDS: PANTOPRAZOLE 40 MG IV IVPush SCH (07:50)
[2019-09-06] MEDS: ENOXAPARIN 40 MG/0.4 ML SQ SCH (07:51)
[2019-09-06] MEDS: TOPIRAMATE 100 MG TABLET PO SCH (07:51)
[2019-09-06] MEDS: VENLAFAXINE 75 MG CAP ER PO SCH (07:51)
[2019-09-06] MEDS: THIAMINE 100 MG in DEXTROSE 5% 50 ML IVPB SCH (09:36)
[2019-09-06 12:01] VITALS: BP 125/84
[2019-09-06 18:20] VITALS: BP 128/79
[2019-09-06] MEDS: QUETIAPINE 200 MG TABLET PO SCH (21:44)
[2019-09-07 00:24] VITALS: BP 121/75
[2019-09-07] MEDS: ACETAMINOPHEN 500 MG TABLET PO SCH ×3 (04:34→16:23)
[2019-09-07] MEDS: OXYcodone 5 MG/5 ML ORAL.SOL UDC PO PRN (04:34)
[2019-09-07] MEDS: VANCOMYCIN 50 MG/ML ORAL SUSP PO SCH ×3 (04:35→16:22)
[2019-09-07 05:59] LABS: ANION GAP 6 mmol/L (5-15); CALCIUM 8.5 mg/dL (8.5-10.1); CHLORIDE 117 mmol/L (98-107)
[2019-09-07 06:00] LABS: CREATININE 0.77 mg/dL (0.55-1.02)
[2019-09-07 08:18] VITALS: BP 157/106
[2019-09-07 09:46] VITALS: BP 143/94
[2019-09-07] MEDS: PANTOPRAZOLE 40 MG IV IVPush SCH (10:22)
[2019-09-07] MEDS: POTASSIUM CHLORIDE 40 MEQ in D5%-LACTATED RINGERS 1,000 ML IV SCH (10:26)
[2019-09-07] MEDS: THIAMINE 100 MG in DEXTROSE 5% 50 ML IVPB SCH (10:26)
[2019-09-07] MEDS: ENOXAPARIN 40 MG/0.4 ML SQ SCH (10:31)
[2019-09-07] MEDS: VENLAFAXINE 75 MG CAP ER PO SCH (10:32)
[2019-09-07] MEDS: TOPIRAMATE 100 MG TABLET PO SCH (10:32)
[2019-09-07 12:06] VITALS: BP 133/89
[2019-09-07] MEDS ORDERED: VANC1VIA3 PO (12:34)
[2019-09-07] MEDS ORDERED: CEFU250T66 PO (12:34)
[2019-09-07] MEDS ORDERED: TRAM50TA2 PO (12:34)
[2019-09-07] MEDS ORDERED: ONDA4TAB13 PO (12:34)
[2019-09-08] MEDS ORDERED: PANTOPRAZOLE 40MG TABLET PO SCH (07:30)
== END 2019-09-07 17:00 | disposition home or self-care (01) | DRG 342 ==
LOC: ED 07:00 → EDIP 09:36 → 5SO 12:35 → 4NE 09-05 20:12
PROVIDERS: ADMIT Internal Medicine; ATTEND Internal Medicine
PROC: 0DTJ0ZZ Resection of Appendix, Open Approach (ICD-10-PCS; principal; 2019-09-05 01:30)
DX: K35.80 Unspecified acute appendicitis (principal); E87.2 Acidosis; A04.72 Enterocolitis due to Clostridium difficile, not specified as recurrent; K21.9 Gastro-esophageal reflux disease without esophagitis; D72.829 Elevated white blood cell count, unspecified; F10.20 Alcohol dependence, uncomplicated; K76.0 Fatty (change of) liver, not elsewhere classified; E86.0 Dehydration; E87.6 Hypokalemia; F31.9 Bipolar disorder, unspecified; F41.9 Anxiety disorder, unspecified; Z83.3 Family history of diabetes mellitus; Z82.3 Family history of stroke; Z82.49 Family history of ischemic heart disease and other diseases of the circulatory system; Z88.1 Allergy status to other antibiotic agents; Z88.6 Allergy status to analgesic agent; Z87.891 Personal history of nicotine dependence; Z81.1 Family history of alcohol abuse and dependence
CPT/HCPCS: 36415; 74022; 87046; 87427; 89055; 96361; 96365; 99285; J3370; J7121; S0020; 74178; 76700; 80048; 80053; 80061; 81001; 82040; 83690; 83735; 83880; 84100; 84443; 84484; 85025; 85651; 87040; 87086; 87324; 87328; 87329; 87493; 87635; 88304; 93005; 93306; 93356; G0378; J0696; J1100; J1170; J1650; J1885; J2175; J2250; J2405; J2550; J2704; J3010; J3411; J3480; Q0162; Q9967; C9113; J0330; J2060; J2270; J7030

== ENCOUNTER 2019-12-26 06:06 | Emergency (ER) | payer BC ==
[~2019-12-26] VITALS: Ht 154.9 cm; Wt 85.9 kg
[~2019-12-26 06:06] MED LIST changes: +CEFU250T66 PO; +ONDA4TAB13 PO; +TOPI200T6 PO; +TRAM50TA2 PO; +VANC1VIA3 PO; +VENL37.52 PO
--- NOTE | 2019-12-26 06:22 | NUR ---
pt with fever off and on for several days, no tylenol today. here with her daughter who she called and asked to bring to er.
--- NOTE | 2019-12-26 06:34 | NUR ---
PT SLIGHTLY UNCOOPERATIVE, AGITATED, NO N/V/D. C/O BODY ACHES, HEADACHE, DIZZINESS.
--- NOTE | 2019-12-26 06:47 | NUR ---
ERP AT BEDSIDE, TO SWAB PT. OK FOR ICE CHIPS. SIDE RAILS UP, ON MONITOR, CONT PULSE OX, CALL PADRON IN REACH. DAUGHTER AT BEDSIDE. PT NEEDS CONSTANT REDIRECTION, VERY ANXIOUS.
--- NOTE | 2019-12-26 06:52 | NUR ---
REPORT TO OLIVER ROONEY
[2019-12-26] MEDS ORDERED: ONDANSETRON 2MG/ML, 2ML IVPush ONE (07:00)
[2019-12-26] MEDS ORDERED: ACETAMINOPHEN 500 MG TABLET PO ONE (07:00)
[2019-12-26] MEDS ORDERED: SODIUM CHLORIDE FLUSH 10ML SYR IVF ONE (07:00)
[2019-12-26] MEDS ORDERED: SODIUM CHLORIDE 0.9% 1,000ML IVBOLUS ONE (07:00)
[2019-12-26] MEDS ORDERED: ONDANSETRON 2MG/ML, 2ML ONE (07:02)
[2019-12-26] MEDS ORDERED: ACETAMINOPHEN 500 MG TABLET ONE (07:02)
[2019-12-26] MEDS ORDERED: FAMOTIDINE 20 MG/2 ML ONE (07:20)
[2019-12-26] MEDS ORDERED: IBUPROFEN 600 MG TABLET ONE (07:20)
[2019-12-26 07:24] VITALS: BP 127/82
--- NOTE | 2019-12-26 07:28 | NUR ---
labs, iv established. medicated for headache and nausea. vss. xr in process
[2019-12-26] MEDS ORDERED: IBUPROFEN 600 MG TABLET PO ONE (07:30)
[2019-12-26] MEDS ORDERED: FAMOTIDINE 20 MG/2 ML IVPush ONE (07:30)
[2019-12-26 07:38] LABS: BASOPHILS % (AUTO) 1 % (0-1); EOSINOPHILS % (AUTO) 0 % (1-7); LYMPHOCYTES % (AUTO) 21 % (22-44); MEAN CORPUSCULAR HEMOGLOBIN 31.6 pg (27.0-34.8); MEAN CORPUSCULAR HGB CONC 32.6 g/dL (32.4-35.8); MEAN PLATELET VOLUME 7.7 fL (7.4-10.4); MONOCYTES % (AUTO) 11 % (2-9); NEUTROPHILS % (AUTO) 67 % (42-75); PLATELET COUNT 184 x10^3/uL (130-400); RED BLOOD COUNT 4.04 x10^6/uL (3.82-5.3); RED CELL DISTRIBUTION WIDTH 14.9 % (9.6-15.2)
[2019-12-26 07:43] LABS: MD NO
[2019-12-26 07:44] LABS: ALBUMIN 3.8 g/dL (3.4-5.0); ANION GAP 9 mmol/L (5-15); CALCIUM 8.6 mg/dL (8.5-10.1); CHLORIDE 112 mmol/L (98-107)
[2019-12-26 07:46] LABS: ALANINE AMINOTRANSFERASE 38 U/L (12-78); ALKALINE PHOSPHATASE 124 U/L (45-117); BILIRUBIN,TOTAL 0.2 mg/dL (0.2-1.0); CREATININE 1.01 mg/dL (0.55-1.02); TOTAL PROTEIN 7.9 g/dL (6.4-8.2)
--- NOTE | 2019-12-26 08:27 | NUR ---
assisted pt to [facility]sc. ua sent
[2019-12-26 08:34] LABS: MICROSCOPIC INDICATED
--- NOTE | 2019-12-26 09:38 | NUR ---
Patient/Caregiver given discharge instructions and they have confirmed that they understand the instructions. Patient ambulatory with steady gait.
== END 2019-12-26 09:39 | disposition home or self-care (01) ==
LOC: ED 07:12
DX: B34.9 Viral infection, unspecified (principal); Z20.828 Contact with and (suspected) exposure to other viral communicable diseases; R11.2 Nausea with vomiting, unspecified
CPT/HCPCS: 36415; 71045; 80053; 81001; 83605; 85025; 87081; 87086; 87635; 87880; 96361; 96374; 96375; 99284; J2405; J7030; 87147

== ENCOUNTER 2019-12-29 19:23 | Inpatient (IN) | payer BC ==
[~2019-12-29] VITALS: Ht 154.9 cm; Wt 82.1 kg
--- NOTE | 2019-12-29 19:38 | NUR ---
pt to room from lobby
[2019-12-29] MEDS ORDERED: SODIUM CHLORIDE 0.9% 1,000ML IVBOLUS ONE (20:00)
--- NOTE | 2019-12-29 20:10 | NUR ---
PT THROWING UP IN ROOM, COMPLAINTS OF CHEST PAIN. MULTIPLE ADDITIONAL COMPLAINTS. MD NOTIFIED OF N/V. MEDICATIONS AND FLUIDS ADMINISTERED. PT CONNECTED TO MULCHER OPERATOR AND CONTINUOUS O2 SAT.
[2019-12-29] MEDS ORDERED: ONDANSETRON 2MG/ML, 2ML ONE (20:15)
[2019-12-29 20:28] LABS: BASOPHILS % (AUTO) 1 % (0-1); EOSINOPHILS % (AUTO) 0 % (1-7); LYMPHOCYTES % (AUTO) 32 % (22-44); MEAN CORPUSCULAR HEMOGLOBIN 31.6 pg (27.0-34.8); MEAN CORPUSCULAR HGB CONC 33.3 g/dL (32.4-35.8); MEAN PLATELET VOLUME 8.6 fL (7.4-10.4); MONOCYTES % (AUTO) 7 % (2-9); NEUTROPHILS % (AUTO) 60 % (42-75); PLATELET COUNT 126 x10^3/uL (130-400); RED BLOOD COUNT 4.41 x10^6/uL (3.82-5.3); RED CELL DISTRIBUTION WIDTH 15.4 % (9.6-15.2)
[2019-12-29 20:30] LABS: MD NO
[2019-12-29] MEDS ORDERED: SODIUM CHLORIDE FLUSH 10ML SYR IVF ONE (20:30)
[2019-12-29] MEDS ORDERED: ONDANSETRON 2MG/ML, 2ML IVPush ONE (20:30)
[2019-12-29 20:37] LABS: ALANINE AMINOTRANSFERASE 46 U/L (12-78); ALBUMIN 3.8 g/dL (3.4-5.0); ANION GAP 7 mmol/L (5-15); CALCIUM 9.2 mg/dL (8.5-10.1); CHLORIDE 109 mmol/L (98-107); CREATININE 1.09 mg/dL (0.55-1.02)
[2019-12-29 20:41] LABS: ALKALINE PHOSPHATASE 208 U/L (45-117); BILIRUBIN,TOTAL 0.4 mg/dL (0.2-1.0); TOTAL PROTEIN 8.4 g/dL (6.4-8.2); TROPONIN I < 0.015 ng/mL (0.000-0.045)
[2019-12-29] MEDS ORDERED: PROMETHAZINE 25 MG/ML, 1ML ONE (21:56)
[2019-12-29] MEDS ORDERED: MAALOX/HYOSCYAMINE/LIDOCAINE 45 ML BTL PO ONE (22:00)
[2019-12-29] MEDS ORDERED: PROMETHAZINE 25 MG/ML, 1ML IM ONE (22:00)
[2019-12-29] MEDS ORDERED: MORPHINE SULFATE 4 MG/ML, 1ML ONE (22:11)
[2019-12-29] MEDS ORDERED: MORPHINE SULFATE 4 MG/ML, 1ML IVPush PRN (22:30)
--- NOTE | 2019-12-29 22:30 | NUR ---
PT IMPROVED PAIN AND NAUSEA AFTER MEDICATION ADMINISTRATION.
[2019-12-29] MEDS ORDERED: BISACODYL 10 MG SUPP PR PRN (23:00)
[2019-12-29] MEDS ORDERED: LORazepam 2 MG/ML, 1ML IVPush PRN (23:00)
[2019-12-29] MEDS: SODIUM CHLORIDE 0.9% 1,000 ML IV SCH (23:00)
--- NOTE | 2019-12-29 23:20 | NUR ---
Report given to OLIVER Rios.
[2019-12-29 23:41] VITALS: BP 134/94
[2019-12-30 02:10] VITALS: BP 123/87
[2019-12-30] MEDS: ONDANSETRON 2MG/ML, 2ML IVPush PRN ×3 (03:53→20:47)
[2019-12-30] MEDS ORDERED: KETOROLAC 30 MG/1 ML IVPush ONE (05:00)
[2019-12-30 06:28] LABS: BASOPHILS % (AUTO) 1 % (0-1); EOSINOPHILS % (AUTO) 0 % (1-7); LYMPHOCYTES % (AUTO) 33 % (22-44); MEAN CORPUSCULAR HEMOGLOBIN 31.2 pg (27.0-34.8); MEAN CORPUSCULAR HGB CONC 32.4 g/dL (32.4-35.8); MEAN PLATELET VOLUME 8.6 fL (7.4-10.4); MONOCYTES % (AUTO) 7 % (2-9); NEUTROPHILS % (AUTO) 59 % (42-75); PLATELET COUNT 115 x10^3/uL (130-400); RED BLOOD COUNT 3.99 x10^6/uL (3.82-5.3); RED CELL DISTRIBUTION WIDTH 15.9 % (9.6-15.2)
[2019-12-30 06:31] LABS: ANION GAP 9 mmol/L (5-15); CALCIUM 8.4 mg/dL (8.5-10.1); CHLORIDE 115 mmol/L (98-107)
[2019-12-30 06:33] LABS: CREATININE 0.81 mg/dL (0.55-1.02)
[2019-12-30 06:50] LABS: MD NO
[2019-12-30 07:31] VITALS: BP 130/91
[2019-12-30] MEDS: PROMETHAZINE 25 MG/ML, 1ML IM PRN ×2 (09:55→17:45)
[2019-12-30] MEDS ORDERED: CHLORHEXIDINE 15 ML UDC MM ONE (10:00)
[2019-12-30] MEDS ORDERED: ACETAMINOPHEN 325 MG TABLET PO PRN (10:30)
[2019-12-30] MEDS ORDERED: MIDAZOLAM 1 MG/ML, 2ML IV PRN (10:30)
[2019-12-30] MEDS ORDERED: MEPERIDINE/PF 25MG/0.5ML IVPush PRN (10:30)
[2019-12-30] MEDS ORDERED: LABETALOL 5MG/ML, 20ML IV PRN (10:30)
[2019-12-30] MEDS ORDERED: OXYcodone 5 MG/5 ML ORAL.SOL UDC PO PRN (10:30)
[2019-12-30] MEDS ORDERED: ONDANSETRON 2MG/ML, 2ML IVPush PRN (10:30)
[2019-12-30] MEDS ORDERED: ALBUTEROL SULFATE 2.5 MG/3 ML NPPB PRN (10:30)
[2019-12-30] MEDS ORDERED: FENTANYL PF 100 MCG/2ML IV PRN (10:30)
[2019-12-30] MEDS ORDERED: PROMETHAZINE 25 MG/ML, 1ML IVPush PRN (10:30)
[2019-12-30] MEDS ORDERED: PROPOFOL 10 MG/ML, 50ML ONE (10:35)
[2019-12-30] MEDS ORDERED: LIDOCAINE-MPF 1%, 5ML ONE (10:35)
[2019-12-30] MEDS: SODIUM CHLORIDE 0.9% 1,000 ML IV SCH (12:20)
[2019-12-30] MEDS: OMEPRAZOLE 20 MG CAPSULE.DR PO SCH (12:30)
[2019-12-30] MEDS: SUCRALFATE 1 GM/10 ML UDC PO SCH ×3 (12:46→20:29)
[2019-12-30] MEDS: APAP/CODEINE 24/2.4MG/ML ELIXIR PO PRN ×2 (12:59→20:50)
[2019-12-30 13:27] VITALS: BP 144/93
[2019-12-30] MEDS ORDERED: ACETAMINOPHEN 650 MG SUPP PR PRN (14:00)
[2019-12-30 17:02] LABS: MICROSCOPIC INDICATED
[2019-12-30] MEDS: MEROPENEM 1 GM in SODIUM CHLORIDE 0.9% 100 ML IV SCH (17:44)
[2019-12-30 18:20] LABS: CLOSTRIDIUM DIFFICILE ANTIGEN POSITIVE; CLOSTRIDIUM DIFFICILE TOXIN NEGATIVE (Negative)
[2019-12-30 20:00] VITALS: BP 138/88
[2019-12-30] MEDS: QUETIAPINE 200 MG TABLET PO SCH (20:30)
[2019-12-30] MEDS: VANCOMYCIN 50 MG/ML ORAL SUSP PO SCH (20:30)
[2019-12-31 01:59] VITALS: BP 105/71
[2019-12-31] MEDS: VANCOMYCIN 50 MG/ML ORAL SUSP PO SCH ×4 (02:01→19:22)
[2019-12-31] MEDS: MEROPENEM 1 GM in SODIUM CHLORIDE 0.9% 100 ML IV SCH ×2 (02:01→09:25)
[2019-12-31] MEDS: SODIUM CHLORIDE 0.9% 1,000 ML IV SCH (02:02)
[2019-12-31] MEDS: OMEPRAZOLE 20 MG CAPSULE.DR PO SCH ×2 (05:34→17:00)
[2019-12-31] MEDS: APAP/CODEINE 24/2.4MG/ML ELIXIR PO PRN ×2 (05:40→05:42)
[2019-12-31 06:44] VITALS: BP 120/84
[2019-12-31] MEDS: ACETAMINOPHEN 325 MG TABLET PO PRN ×3 (07:53→18:37)
[2019-12-31] MEDS: VENLAFAXINE XR 37.5MG CAP.ER.24H PO SCH (07:54)
[2019-12-31] MEDS: TOPIRAMATE 100 MG TABLET PO SCH (07:54)
[2019-12-31] MEDS: SUCRALFATE 1 GM/10 ML UDC PO SCH ×4 (07:54→21:02)
[2019-12-31 12:14] VITALS: BP 138/93
[2019-12-31] MEDS ORDERED: LACTATED RINGERS 1,000 ML IV SCH ×2 (14:00)
[2019-12-31 14:25] LABS: MICROSCOPIC INDICATED
[2019-12-31] MEDS: CEFAZOLIN PMX 1GM/50ML 50 ML IV SCH ×2 (14:39→21:02)
[2019-12-31] MEDS: ONDANSETRON 2MG/ML, 2ML IVPush PRN (17:00)
[2019-12-31 19:23] VITALS: BP 143/97
[2019-12-31] MEDS: QUETIAPINE 200 MG TABLET PO SCH (21:02)
[2020-01-01 01:03] VITALS: BP 127/82
[2020-01-01] MEDS: VANCOMYCIN 50 MG/ML ORAL SUSP PO SCH ×4 (01:27→18:21)
[2020-01-01] MEDS: OMEPRAZOLE 20 MG CAPSULE.DR PO SCH ×2 (05:44→18:21)
[2020-01-01] MEDS: CEFAZOLIN PMX 1GM/50ML 50 ML IV SCH ×3 (05:44→23:42)
[2020-01-01] MEDS: ACETAMINOPHEN 325 MG TABLET PO PRN ×2 (05:44→13:29)
[2020-01-01 05:57] LABS: BASOPHILS % (AUTO) 0 % (0-1); EOSINOPHILS % (AUTO) 1 % (1-7); LYMPHOCYTES % (AUTO) 42 % (22-44); MEAN CORPUSCULAR HEMOGLOBIN 31.2 pg (27.0-34.8); MEAN CORPUSCULAR HGB CONC 32.6 g/dL (32.4-35.8); MEAN PLATELET VOLUME 8.6 fL (7.4-10.4); MONOCYTES % (AUTO) 11 % (2-9); NEUTROPHILS % (AUTO) 47 % (42-75); PLATELET COUNT 142 x10^3/uL (130-400); RED BLOOD COUNT 3.74 x10^6/uL (3.82-5.3); RED CELL DISTRIBUTION WIDTH 15.7 % (9.6-15.2)
[2020-01-01 06:06] LABS: MD NO
[2020-01-01 06:11] LABS: ALANINE AMINOTRANSFERASE 32 U/L (12-78); ANION GAP 5 mmol/L (5-15); CALCIUM 7.9 mg/dL (8.5-10.1); CHLORIDE 115 mmol/L (98-107); CREATININE 0.76 mg/dL (0.55-1.02)
[2020-01-01 06:14] LABS: ALKALINE PHOSPHATASE 146 U/L (45-117); BILIRUBIN,TOTAL 0.5 mg/dL (0.2-1.0); TOTAL PROTEIN 6.6 g/dL (6.4-8.2)
[2020-01-01] MEDS: SUCRALFATE 1 GM/10 ML UDC PO SCH ×4 (06:31→21:09)
[2020-01-01 06:36] VITALS: BP 130/84
[2020-01-01] MEDS: POTASSIUM CHLORIDE 20 MEQ TAB.ER.PRT PO SCH ×2 (09:08→18:11)
[2020-01-01] MEDS: VENLAFAXINE XR 37.5MG CAP.ER.24H PO SCH (09:08)
[2020-01-01] MEDS: TOPIRAMATE 100 MG TABLET PO SCH (09:08)
[2020-01-01 12:32] VITALS: BP 149/87
[2020-01-01] MEDS: QUETIAPINE 200 MG TABLET PO SCH (21:06)
[2020-01-01 21:11] VITALS: BP 146/95
[2020-01-02 01:09] VITALS: BP 113/75
[2020-01-02] MEDS: VANCOMYCIN 50 MG/ML ORAL SUSP PO SCH ×3 (01:58→13:39)
[2020-01-02 05:00] LABS: ANION GAP 5 mmol/L (5-15); CALCIUM 8.7 mg/dL (8.5-10.1); CHLORIDE 119 mmol/L (98-107)
[2020-01-02 05:02] LABS: CREATININE 0.65 mg/dL (0.55-1.02)
[2020-01-02] MEDS: SUCRALFATE 1 GM/10 ML UDC PO SCH ×2 (06:07→11:23)
[2020-01-02] MEDS: OMEPRAZOLE 20 MG CAPSULE.DR PO SCH (06:07)
[2020-01-02 07:18] VITALS: BP 128/91
[2020-01-02] MEDS: VENLAFAXINE XR 37.5MG CAP.ER.24H PO SCH (08:07)
[2020-01-02] MEDS: CEFAZOLIN PMX 1GM/50ML 50 ML IV SCH (08:07)
[2020-01-02] MEDS: TOPIRAMATE 100 MG TABLET PO SCH (08:07)
[2020-01-02] MEDS ORDERED: SUCR1ORA5 PO (12:42)
[2020-01-02] MEDS ORDERED: CEPH-368 PO (12:42)
[2020-01-02] MEDS ORDERED: VANC1VIA3 PO (12:42)
[2020-01-02] MEDS ORDERED: OMEP-110 PO (12:42)
[2020-01-02] MEDS: ACETAMINOPHEN 325 MG TABLET PO PRN (13:40)
== END 2020-01-02 15:55 | disposition home or self-care (01) | DRG 380 ==
LOC: ED 20:02 → EDIP 22:02 → 4WST 23:38
PROVIDERS: ADMIT Family Medicine; ATTEND Hospitalist
PROC: 0D768ZZ Dilation of Stomach, Via Natural or Artificial Opening Endoscopic (ICD-10-PCS; 2019-12-30)
PROC: 0DB68ZX Excision of Stomach, Via Natural or Artificial Opening Endoscopic, Diagnostic (ICD-10-PCS; principal; 2019-12-30 11:30)
DX: K22.10 Ulcer of esophagus without bleeding (principal); N17.0 Acute kidney failure with tubular necrosis; A04.72 Enterocolitis due to Clostridium difficile, not specified as recurrent; E87.2 Acidosis; N39.0 Urinary tract infection, site not specified; R45.851 Suicidal ideations; D69.6 Thrombocytopenia, unspecified; E78.5 Hyperlipidemia, unspecified; E87.6 Hypokalemia; F31.9 Bipolar disorder, unspecified; F41.1 Generalized anxiety disorder; K21.9 Gastro-esophageal reflux disease without esophagitis; K26.9 Duodenal ulcer, unspecified as acute or chronic, without hemorrhage or perforation; K31.9 Disease of stomach and duodenum, unspecified; K29.80 Duodenitis without bleeding; K22.2 Esophageal obstruction; R00.0 Tachycardia, unspecified; Z86.19 Personal history of other infectious and parasitic diseases; Z88.0 Allergy status to penicillin; Z90.49 Acquired absence of other specified parts of digestive tract; Z88.6 Allergy status to analgesic agent; Z88.1 Allergy status to other antibiotic agents
CPT/HCPCS: 36415; 74220; 87046; 87427; 89055; J3370; 70450; 71045; 76705; 80048; 80053; 81001; 83690; 83735; 84484; 85025; 87040; 87086; 87324; 87493; 88305; 93005; G0378; J0690; J1885; J2185; J2405; J2550; J2704; J2270; J7030; J7120